=== PATIENT | female | born 1985 | race Two or more races ===

== ENCOUNTER → 2016-11-08 | Outpatient (CLI) | payer OTHER | LOC: FIMAGING 12:10 | PROVIDERS: ATTEND Obstetrics & Gynecology | DX: Z34.02 Encounter for supervision of normal first pregnancy, second trimester (principal); Z3A.19 19 weeks gestation of pregnancy ==

== ENCOUNTER 2017-03-18 06:23 | Inpatient (IN) | payer OTHER ==
[2017-03-18] MEDS ORDERED: OLIVE OIL 118 ML BTL MISC PRN (07:38)
[2017-03-18] MEDS ORDERED: OXYTOCIN/RINGERS LACTATE 1,000 ML IV PRN (07:38)
[2017-03-18] MEDS ORDERED: LR 1,000 ML IV PRN (07:38)
[2017-03-18] MEDS ORDERED: TERBUTALINE SULFATE 1 MG/ML VIAL IV PRN (07:38)
[2017-03-18] MEDS ORDERED: EPSOM SALT 454 GM TP PRN (07:38)
[2017-03-18] MEDS ORDERED: OXYTOCIN 20 UNIT in LR 1,000 ML IV SCH (08:00)
--- NOTE | 2017-03-18 08:08 | OBPROG ---
OBG Labor Progress Note Assessment/Plan: Assessment:cat1 fhr denies pain no contractions pitocin per protocol oligohydramios consulted dr. teresa wynne on POC Plan:pitocin per protocol 03/18/17 08:06 Subjective: Doing well. Denies difficulties. OK with poc IOL for oligohydramnios - SVE Dilation (cm): 3 Effacement (%): 80 Station: -2 Oxytocin Orders Assessment - Pre-Induction/Augmentation Assessment Gestational Age: 38 week(s) and 2 day(s) ICD10 Worksheet Patient Problems: Problems Problem Status Onset term oligohydramnios Acute
[2017-03-18 08:15] LABS: % IMMATURE GRANULYOCYTES 0.9 % (0.0-1.1); ABSOLUTE IMMATURE GRANULOCYTES 0.07 10^3/uL (0.00-0.10); ADD DIFF? NO; ADD MORPH? NO; ADD SCAN? NO; ATYPICAL LYMPHOCYTE FLAG 0 (0-99); FRAGMENT RBC FLAG 0 (0-99); HEMATOCRIT 41.2 % (38.0-47.0); HEMOGLOBIN 13.7 g/dL (12.6-16.3); LEFT SHIFT FLG 10 (0-99); LIPEMIA HEMOLYSIS FLAG 80 (0-99); MEAN CELL HEMOGLOBIN 30.6 pg (27.9-34.1); MEAN CELL HEMOGLOBIN CONCENTR. 33.3 g/dL (32.4-36.7); MEAN CELL VOLUME 92.2 fL (81.5-99.8); MEAN PLATELET VOLUME 10.7 fL (8.7-11.7); PLATELET CLUMPS FLAG 0 (0-99); PLATELET COUNT 209 10^3/uL (150-400); RED BLOOD CELL COUNT 4.47 10^6/uL (4.18-5.33); RED CELL DISTRIBUTION WIDTH 13.9 % (11.5-15.2)
[2017-03-18] MEDS ORDERED: OXYTOCIN/LR *STANDARD DOSE PROTOCOL IV SCH (08:30)
[2017-03-18] MEDS ORDERED: OXYTOCIN/RINGERS LACTATE 500 ML IV SCH (08:30)
--- NOTE | 2017-03-18 08:46 | GHP ---
[f rep st] HISTORY AND PHYSICAL DATE OF ADMISSION: 03/18/2017 HISTORY OF PRESENT ILLNESS: The patient is a 31-year-old, 1, para 0, with an EDC of 017, at 38 and 2/7 weeks gestational age, who comes into labor and delivery on 03/18/2017 for induct ion of labor for oligohydramnios at 5 cm. The patient came into the office yesterday for routine ca re, measuring at less than optimal, KARLI was completed in the exam room, oligo was found at 5 cm. NS T was completed, category 1, reassuring, reactive. The patient was given instruction for the possib ility of drinking water, hydrating, repeat KARLI, or induction of labor, and the patient shows inducti on of labor. The patient got to labor and delivery at 6 a.m., and the patient was admitted. At 7 o 'clock, Pitocin explanation, risks, benefits and alternatives was again explained. The patient verb alized understanding. Significant other, also verbalized understanding of plan of care. The nick barragan has been seen routinely at [facility] since transfer of care at 30 weeks. A 7 week ultr asound was used for dating. No change to date, March 30, 2017 the EDC. MEDICAL HISTORY: Occasional headaches, itchy rash. UTIs in the past. Soy allergy. On and off bobo go over the last several weeks, which became better with hydration. Two weeks ago, patient was 8 cm . PRESENT HISTORY: Yesterday patient had oligo of 5. SURGICAL HISTORY: Noncontributory. FAMILY HISTORY: Noncontributory. SOCIAL HISTORY: Patient is . Denies tobacco use. Drug use. GYNECOLOGICAL HISTORY: Noncontributory. PHYSICAL ASSESSMENT: GENERAL: Patient is awake, alert, oriented x3. LUNGS: Clear bilaterally. A BDOMEN: Bowel sounds are positive in all 4 quadrants. EXTREMITIES: DTRs are 1+ bilaterally. Winnie ns sign is negative bilaterally. No contractions are noted on the monitor. Category 1 strip. PLAN OF CARE: 1. GBS negative. 2. Pitocin per protocol. 3. Patient chooses to do a nonmedicated . 4. Consult physician for plan of care as needed, Dr. Chiquita Nielson. /[id number]/MODL
[2017-03-18] MEDS ORDERED: LIDOCAINE 1% 300 MG/30 ML SDV ONE (10:04)
[2017-03-18] MEDS ORDERED: OLIVE OIL 118 ML BTL ONE (10:04)
[2017-03-18] MEDS ORDERED: AMMONIA AROMATIC 1 EACH AMP IH ONE (10:05)
[2017-03-18] MEDS ORDERED: MISOPROSTOL 200 MCG TAB ONE (10:05)
[2017-03-18] MEDS ORDERED: OXYTOCIN 10 UNIT/ML VIAL ONE (10:05)
[2017-03-18] MEDS ORDERED: TERBUTALINE SULFATE 1 MG/ML VIAL ONE (10:05)
--- NOTE | 2017-03-18 13:44 | OBPROG ---
OBG Labor Progress Note Assessment/Plan: Assessment:cat1 fhr menstrual cramp pain q2-3 minutes pitocin at 16 mu arom clear fluid exam 80/-[address] teresa wynne on POC Plan:pitocin per protocol 03/18/17 08:06 03/18/17 13:43 Subjective: Beginning to feel pain with the contractions. " They feel like menstrual cramps Objective: 03/18/17 08:00 Patient ABO/Rh A POSITIVE 03/18/17 08:00 - SVE Dilation (cm): 4 Effacement (%): 80 Station: -1 - Procedures Non-surgical Procedures: Amniotomy Oxytocin Orders Assessment - Pre-Induction/Augmentation Assessment Gestational Age: 38 week(s) and 2 day(s) ICD10 Worksheet Patient Problems: Problems Problem Status Onset term oligohydramnios Acute
--- NOTE | 2017-03-18 21:51 | OBPROG ---
OBG Labor Progress Note Assessment/Plan: Assessment:cat1 fhr 1900 feeling greter pain q2-3 minutes pitocin at 10 mu exam 5/100/-[address] teresa wynne on POC Plan:pitocin per protocol 03/18/17 08:06 03/18/17 13:43 03/18/17 21:50 Subjective: Coping well with the pain Objective: 03/18/17 08:00 Patient ABO/Rh A POSITIVE 03/18/17 08:00 - SVE Dilation (cm): 5 Effacement (%): 100 Station: -1 - Procedures Non-surgical Procedures: Amniotomy Oxytocin Orders Assessment - Pre-Induction/Augmentation Assessment Gestational Age: 38 week(s) and 2 day(s) ICD10 Worksheet Patient Problems: Problems Problem Status Onset term oligohydramnios Acute
--- NOTE | 2017-03-18 21:53 | OBPROG ---
OBG Labor Progress Note Assessment/Plan: Assessment:cat2 fhr feeling greater pain/ pressure q2-3 minutes pitocin at 12 mu exam 6/100/-1 cephalic into tub to assist with pain relief encouraged nurse to increase pitocin to 13mu Plan:pitocin per protocol 03/18/17 08:06 03/18/17 13:43 03/18/17 21:50 03/18/17 21:51 Objective: 03/18/17 08:00 Patient ABO/Rh A POSITIVE 03/18/17 08:00 - SVE Dilation (cm): 6 Effacement (%): 100 Station: 0 - Procedures Non-surgical Procedures: Amniotomy Oxytocin Orders Assessment - Pre-Induction/Augmentation Assessment Gestational Age: 38 week(s) and 2 day(s) ICD10 Worksheet Patient Problems: Problems Problem Status Onset term oligohydramnios Acute
--- NOTE | 2017-03-18 23:16 | OBPROG ---
OBG Labor Progress Note Assessment/Plan: Assessment:cat2 fhr feeling greater pain/ pressure q2-3 minutes pitocin at 12 mu exam 9/100/0 cephalic hands and knees on the bed to assist with pain relief and descent Plan:pitocin per protocol 03/18/17 08:06 03/18/17 13:43 03/18/17 21:50 03/18/17 21:51 03/18/17 23:15 Objective: 03/18/17 08:00 Patient ABO/Rh A POSITIVE 03/18/17 08:00 - SVE Dilation (cm): 9 Effacement (%): 100 Station: 0 - Procedures Non-surgical Procedures: Amniotomy Oxytocin Orders Assessment - Pre-Induction/Augmentation Assessment Gestational Age: 38 week(s) and 2 day(s) ICD10 Worksheet Patient Problems: Problems Problem Status Onset term oligohydramnios Acute
[2017-03-19] MEDS ORDERED: METHYLERGONOVINE MAL 0.2 MG/ML INJ ONE (00:42)
[2017-03-19] MEDS ORDERED: HYDROCORTISONE 0.5% CREAM TP PRN (01:22)
[2017-03-19] MEDS ORDERED: ACETAMINOPHEN 325 MG TAB PO PRN (01:22)
[2017-03-19] MEDS ORDERED: SIMETHICONE 80 MG TAB CHEW PO PRN (01:22)
[2017-03-19] MEDS ORDERED: HYDROCODONE/APAP 5/325 TAB PO PRN (01:22)
--- NOTE | 2017-03-19 01:22 | OBDEL ---
Info Type: Vaginal GBS+: No Indications for Delivery: Oligohydramnios Vaginal Delivery - Labor and Delivery Onset of Contractions Date: 03/18/17 Onset of Contractions Time: 08:30 Onset of Contractions Type: Induced Rupture of Membranes Date: 03/18/17 Rupture of Membranes Time: 13:30 Rupture of Membranes Type: Artificial Amniotic Fluid Color: Clear Dilation Complete Date: 03/19/17 Dilation Complete Time: 00:00 Placenta Delivery Date: 03/19/17 Placenta Delivery Time: 00:40 Total Hours of Labor: 16 Non-surgical Procedures: Amniotomy Laceration: 2nd Degree Repair: 3-0, Vicryl Vaginal Sponge Count Correct: Yes Vaginal Needle Count Correct: Yes Vaginal Sweep Performed: Yes EBL: 450 Delivery Events: Nuchal Cord - Medications Labor Augmentation/Induction Methods Used: Pitocin Operative Report - Delivery L&D Analgesia/Anesthesia Type: None Data Craven Delivery Date: 03/19/17 Delivery Time: 00:31 ANIA: 03/30/17 Gestational Age: 38 week(s) and 3 day(s) Sex of : Female Score (1 Min): 8 Score (5 Min): 8 ICD10 Worksheet Patient Problems: Problems Problem Status Onset term oligohydramnios Acute
[2017-03-19] MEDS ORDERED: METHYLERGONOVINE MAL 0.2 MG/ML INJ IM ONE (01:25)
[2017-03-19] MEDS: IBUPROFEN 600 MG TAB PO PRN ×3 (01:27→13:20)
[2017-03-19] MEDS ORDERED: MISOPROSTOL 200 MCG TAB PR SCH (01:30)
--- NOTE | 2017-03-19 12:55 | OBPP ---
Progress Note Assessment/Plan: Assessment: ppd# 1 s/p anemia syncopal event breast feeding Plan: routine post care x ray for rib pain s/p fall iron h and h increase h20 03/19/17 12:36 03/19/17 12:37 Subjective: patient is doing well overall. Had an episode earlier this am that she didnt report to nurses. had sudden urge to go to the bathroom and got up to go to the bathroom and woke up on the bathroom floor with her hand in the toilet. has left sided rib pain with inspiration. hasnstill gets a little't been drinking much water. feels fine lying down. still gets a little light headed with standing. normal lochia. denies headache and changes in vision. hematocrit rechecked and is stable. working on breast feeding. Objective: 03/19/17 12:10 Patient ABO/Rh A POSITIVE 03/18/17 08:00 Temp Pulse Resp BP Pulse Ox 37.1 C 82 18 76/50 L 03/19/17 08:51 03/19/17 12:02 03/19/17 08:51 03/19/17 12:02 Physical Exam - Physical Exam General Appearance: WD/WN, alert, no apparent distress Neck: non-tender, full range of motion Respiratory: chest non-tender, lungs clear, normal breath sounds, other (left rib tenderness) Cardiac/Chest: normal peripheral pulses, regular rate, rhythm Abdomen: normal bowel sounds, non-tender Extremities: normal range of motion, non-tender, normal inspection, normal capillary refill Skin: normal color, warm/dry Neuro/Psych: no motor/sensory deficits, alert, normal mood/affect, oriented x 3
[2017-03-19] MEDS: DOCUSATE SODIUM 100 MG CAP PO PRN (13:20)
[2017-03-19] MEDS: IRON POLYSAC/IRON HEME 28 MG TAB PO SCH (13:20)
[2017-03-19 23:15] VITALS: RESP 16
[2017-03-20] MEDS: IBUPROFEN 600 MG TAB PO PRN ×2 (01:00→08:49)
[2017-03-20] MEDS: IRON POLYSAC/IRON HEME 28 MG TAB PO SCH (08:49)
[2017-03-20] MEDS: DOCUSATE SODIUM 100 MG CAP PO PRN (08:49)
--- NOTE | 2017-03-20 10:40 | OBPP ---
Progress Note Assessment/Plan: Assessment:pain management well nipples intact vs wnl anemia ff@u scant rubra lochia Plan:pp day 1 03/18/17 08:06 03/18/17 13:43 03/18/17 21:50 03/18/17 21:51 03/18/17 23:15 03/20/17 10:38 Subjective: Doing well denies difficulties. well. Pain well managed. Objective: 03/19/17 12:10 Patient ABO/Rh A POSITIVE 03/18/17 08:00 Temp Pulse Resp BP Pulse Ox 36.1 C 68 16 107/60 96 03/20/17 08:00 03/20/17 08:00 03/20/17 08:00 03/20/17 08:00 03/19/17 20:00 Uterine Position/Fundal Height: At Umbilicus Uterine Tone: Firm Physical Exam - Physical Exam General Appearance: WD/WN, alert, no apparent distress Abdomen: other (ff@u) Extremities: normal range of motion, Chris's sign (negative bilaterally) DTR- Lower Extremities: Knee (R): 1+, Knee (L): 1+ Skin: normal color Neuro/Psych: no motor/sensory deficits, alert, normal mood/affect, oriented x 3 (voiding without difficulty)
[2017-03-21 07:45] VITALS: BP 99/68; PULSE 72; TEMP 98.1; O2SAT 94
[2017-03-21] MEDS: IRON POLYSAC/IRON HEME 28 MG TAB PO SCH (09:51)
--- NOTE | 2017-03-21 11:33 | OBPP ---
Progress Note Assessment/Plan: Assessment: ppd#2 s/p anemia syncopal event breast feeding x ray for rib pain s/p fall Plan: routine post care discharge instructions iron 03/21/17 11:30 Subjective/ Course: 03/21/17 11:32 patient is doing well. pain is well controlled. hydrating well. no further syncopal episodes. denies headache and changes in vision. ambulating. voiding without difficulty. breast feeding. Objective: 03/19/17 12:10 Patient ABO/Rh A POSITIVE 03/18/17 08:00 Temp Pulse Resp BP Pulse Ox 36.7 C 72 16 99/68 L 94 03/21/17 07:44 03/21/17 07:44 03/21/17 07:44 03/21/17 07:44 03/21/17 07:44 Physical Exam - Physical Exam EENT: PERRL/EOMI, normal ENT inspection, pharynx normal Neck: non-tender, full range of motion, supple Respiratory: chest non-tender, lungs clear, normal breath sounds Cardiac/Chest: normal peripheral pulses, regular rate, rhythm Abdomen: normal bowel sounds, hypoactive bowel sounds Extremities: normal range of motion, non-tender, normal inspection, normal capillary refill Skin: normal color, warm/dry Neuro/Psych: no motor/sensory deficits, alert, normal mood/affect, oriented x 3
--- NOTE | 2017-03-21 11:42 | OBGCSDC ---
General Delivery Information - General Info : 1 Para: 1 Type: Vaginal Admission Date: 03/18/17 Labs: Patient ABO/Rh A POSITIVE 03/18/17 08:00 Hct 33.7 % (38.0-47.0) L 03/19/17 12:10 - Hospital Course Antepartum: [facility] until 29 weeks the [facility]. hx depression. oligo. brought in for induction 03/21/17 11:39 Intrapartum: 03/21/17 11:42 pitocin, arom. second degree laceration : syncopal event - unattended. neg chest x ray. had to pee urgently, got up to void and passed out. 03/21/17 11:32 patient is doing well. pain is well controlled. hydrating well. no further syncopal episodes. denies headache and changes in vision. ambulating. voiding without difficulty. breast feeding. 03/21/17 11:42 b Vaginal - Diagnosis Labor: Induced Rupture of Membranes Type: Artificial Amniotic Fluid Color: Clear Laceration: 2nd Degree Repair: 3-0, Vicryl Delivery Events: Nuchal Cord - Procedures Non-surgical Procedures: Amniotomy - Delivery Non-surgical Procedures: Amniotomy EBL: 450 Data [place]ven Delivery Date: 03/19/17 Delivery Time: 00:31 ANIA: 03/30/17 Gestational Age: 38 week(s) and 5 day(s) Sex of : Female [place] Weight (gm): 3628.739 g Score (1 Min): 8 Score (5 Min): 8 Discharge Information - Discharge Information Condition: Good Instruction/Follow Up: Four Weeks, Six Weeks
== END 2017-03-21 14:00 | disposition home or self-care (01) | DRG 774 ==
LOC: INTOOBSV 06:23 → FLD 06:23 → OBSVTOIN 06:23 → FOB 03-19 07:46
PROVIDERS: ADMIT Obstetrics & Gynecology; ATTEND Obstetrics & Gynecology
DX: O41.03X0 Oligohydramnios, third trimester, not applicable or unspecified (principal); O70.1 Second degree perineal laceration during delivery; O72.1 Other immediate postpartum hemorrhage; O69.81X0 Labor and delivery complicated by cord around neck, without compression, not applicable or unspecified; Z3A.38 38 weeks gestation of pregnancy; Z37.0 Single live birth
CPT/HCPCS: J2210; J3105

== ENCOUNTER → 2017-03-29 | Outpatient (CLI) | payer OTHER | LOC: FLACT 11:52 | PROVIDERS: ATTEND Advanced Practice Midwife | DX: O92.5 Suppressed lactation (principal) | CPT/HCPCS: G0463 ==

== ENCOUNTER → 2018-08-30 | Outpatient (CLI) | payer OTHER | LOC: FIMAGING 07:37 | PROVIDERS: ATTEND Advanced Practice Midwife | DX: O09.522 Supervision of elderly multigravida, second trimester (principal); Z3A.19 19 weeks gestation of pregnancy; Z87.59 Personal history of other complications of pregnancy, childbirth and the puerperium ==

== ENCOUNTER 2019-01-13 14:04 | Observation (INO) | payer OTHER | END 2019-01-13 15:02 | disposition home or self-care (01) | LOC: FLD 14:04 ==